=== PATIENT | male | born 1980 | race Two or more races ===

== ENCOUNTER 2019-06-10 06:08 | Day surgery (SDC) | payer OTHER ==
[2019-06-10] VITALS (10 sets, daily range): BP systolic 95–124; BP diastolic 50–81
[~2019-06-10] VITALS: Ht 182.9 cm; Wt 81.6 kg
[~2019-06-10 06:08] MED LIST: NKM; ceFAZolin 1gm IVPB IVPB ONE; celeBREX 200mg Cap **SURGERY PATIENTS ONLY ORAL ONE; oxyCONTIN 20mg tab ORAL ONE
--- NOTE | 2019-06-10 06:50 | NUR ---
IV LR WAS STARTED BY ISMA ALOPS RN. NO S/S OF INFILTRATION.
[2019-06-10] MEDS ORDERED: Bupivacaine 0.5% Inj 30 ml vial INJ ONE (07:23)
[2019-06-10] MEDS ORDERED: EPINEPHrine 1mg/1ml Amp ONE (07:23)
[2019-06-10] MEDS ORDERED: LR 1000ml 1,000 ML IVLG SCH (07:38)
--- NOTE | 2019-06-10 07:38 | Anethesia Preoperative Eval ---
Anesthesia Pre-op PMH/ROS General Date of Evaluation: Jun 10, 2019 Anesthesiologist: Chandan ASA Score: ASA 2 Mallampati Score Class I : Soft palate, uvula, fauces, pillars visible Class II: Soft palate, uvula, fauces visible Class III: Soft palate, base of uvula visible Class IV: Only hard plate visible Mallampati Classification: Class II Surgeon: Laquita Diagnosis: Left shoulder internal derangement Surgical Procedure: Left shoulder arthroscopy Anesthesia History: none Family History: no anesthesia problems Allergies: Coded Allergies: Cantaloupe (Verified Allergy, Intermediate, "itchy throat", 06/09/19) Uncoded Allergies: honeydew (Allergy, Mild, 06/10/19) ITCHY THROAT Medications: see eMAR Patient NPO?: Yes NPO Date: Jun 09, 2019 NPO Time: 22:00 Past Medical History Cardiovascular: Denies: HTN, CAD, AL, valve dz, arrhythmia, other Pulmonary: Denies: asthma, COPD, SEAN, other Gastrointestinal/Genitourinary: Reports: GERD; Denies: CRI, ESRD, other Neurologic/Psychiatric: Denies: dementia, CVA, depression/anxiety, TIA, other Endocrine: Denies: DM, hypothyroidism, steroids, other HEENT: Denies: cataract (L), cataract (R), glaucoma, TELLER (L), TELLER (R), other Hematology/Immune: Denies: anemia, DVT, bleeding disorder, other Musculoskeletal/Integumentary: Reports: other - LBP; Denies: OA, RA, DJD, DDD, edema PSxH Narrative: Denies Anesthesia Pre-op Phys. Exam Physician Exam Last Vital Signs Date Time Temp Pulse Resp B/P (MAP) Pulse Ox O2 Delivery O2 Flow Rate FiO2 06/10/19 07:11 98.1 73 20 120/72 97 Room Air Constitutional: NAD Cardiovascular: RRR Respiratory: CTA Airway Exam Mallampati Score: Class II MO: full ROM: full Teeth: intact Anesthesia Pre-op A/P Labs see chart Studies Pre-op Studies: EKG - sr Risk Assessment & Plan Assessment: ASA II Plan: GA with left interscalene nerve block Status Change Before Surgery: No Pre-Antibiotics Drug: Ancef 2g Given Within 1 Hr of Incision: Yes Hilary Queen MD Jun 10, 2019 07:38
[2019-06-10] MEDS ORDERED: Metoclopramide 10mg/2ml Inj IVP PRN (07:45)
[2019-06-10] MEDS ORDERED: DiphenhydrAMINE 50mg/ml Inj IVP PRN (07:45)
[2019-06-10] MEDS ORDERED: fentaNYL 100 mcg/2 mL IV PRN (07:45)
[2019-06-10] MEDS ORDERED: Hydromorphone 0.5mg/0.5ml inj IVP PRN (07:45)
[2019-06-10] MEDS ORDERED: LORazepam Inj 2mg/ml 1ml IV PRN (07:45)
[2019-06-10] MEDS ORDERED: Ketorolac 30mg Inj IV PRN (07:45)
[2019-06-10] MEDS ORDERED: Midazolam 2mg/2ml Inj IVP PRN (07:45)
--- NOTE | 2019-06-10 08:23 | Pre-Procedure Note/Attestation ---
Pre-Procedure Note/Attestation Complete Prior to Procedure Planned Procedure: left Procedure Narrative: left shoulder scope, sad, mini zahra, debridement vs repair RTC Indications for Procedure Pre-Operative Diagnosis: left shoulder rtc tear Attestation I attest that I discussed the nature of the procedure; its benefits; risks and complications; and alternatives (and the risks and benefits of such alternatives ), prior to the procedure, with the patient (or the patient's legal high school admissions representative). I attest that, if there was a reasonable possibility of needing a blood transfusion, the patient (or the patient's legal high school admissions representative) was given the [place] [employer] [facility] standardized written summary, pursuant to the [place] Blood Safety Act ([place] Health and Safety Code # 1645, as amended). I attest that I re-evaluated the patient just prior to the surgery and that there has been no change in the patient's H&P, except as documented below: none Jose Coelho MD Jun 10, 2019 08:23
[2019-06-10] MEDS ORDERED: Lidocaine 1% MPF 10mg/ml 5ml ONE (08:27)
[2019-06-10] MEDS ORDERED: fentaNYL 100 mcg/2 mL IV ONE (08:27)
[2019-06-10] MEDS ORDERED: Propofol 200mg/20ml IV ONE (08:27)
[2019-06-10] MEDS ORDERED: Midazolam 2mg/2ml Inj ONE (08:27)
[2019-06-10] MEDS ORDERED: Ketorolac 30mg Inj ONE (08:28)
[2019-06-10] MEDS ORDERED: Dexamethasone 4mg/ml vial ONE (08:28)
[2019-06-10] MEDS ORDERED: Rocuronium Bromide 50mg/5ml Inj IV ONE (09:00)
[2019-06-10] MEDS ORDERED: NS Irrig 1000ml ONE (09:00)
[2019-06-10] MEDS ORDERED: NS Irrig 4000ml IRRIG ONE ×2 (09:00→10:24)
[2019-06-10] MEDS ORDERED: LR 1000ml ONE (09:00)
[2019-06-10] MEDS ORDERED: Neostigmine 1mg/ml 10ml Inj ONE (10:37)
[2019-06-10] MEDS ORDERED: Glycopyrrolate 0.2mg/ml 1ml Vial ONE (10:37)
--- NOTE | 2019-06-10 10:38 | Brief Operative Note ---
Immediate Post Operative Note Operative Note Chief Complaint: left shoulder pain Pre-op Diagnosis: left shoulder impingement Procedure: left shoulder scope, sad, adelfo zahra, rtc debridement Post-op Diagnosis: same as pre-op Findings: consistent w/pre-op dx studies Surgeon: md hu Laser Beam Color Scanner Operator: janet tomlinson Anesthesiologist: md stef Anesthesia: general Specimen: none Complications: none Condition: stable Fluids: ns Estimated Blood Loss: minimal Drains: none Implant(s) used?: No Michelle Tomlinson Jun 10, 2019 10:38
--- NOTE | 2019-06-10 10:50 | Immediate Post-Op Evaluation ---
Immediate Post-Op Evalulation Immediate Post-Op Evalulation Procedure: Left shoulder arthroscopy, mini zahra decompression Date of Evaluation: Jun 10, 2019 Time of Evaluation: 10:57 IV Fluids: 800 Blood Products: 0 Estimated Blood Loss: min Urinary Output: 0 Blood Pressure Systolic: 95 Blood Pressure Diastolic: 52 Pulse Rate: 53 Respiratory Rate: 16 O2 Sat by Pulse Oximetry: 99 Temperature (Fahrenheit): 97.6 Pain Score (1-10): 0 Nausea: No Vomiting: No Complications 0 Patient Status: awake, reacts, patent, none Hydration Status: adequate Drug: Ancef 2g Given Within 1 Hr of Incision: Yes Hilary Queen MD Jun 10, 2019 10:50
--- NOTE | 2019-06-10 10:53 | 48 Hour Post Anesthesia Eval ---
Post Anesthesia Evaluation Procedure: Left shoulder arthroscopy, mini zahra decompression Date of Evaluation: Jun 10, 2019 Airway: patent Nausea: No Vomiting: No Pain Intensity: 0 Hydration Status: adequate Cardiopulmonary Status: at baseline Mental Status/LOC: patient returned to baseline Post-Anesthesia Complications: 0 Follow-up care needed: ready to discharge Hilary Queen MD Jun 10, 2019 10:52
[2019-06-10] MEDS ORDERED: Tylenol #3 tab (300mg/30mg) ORAL PRN (15:46)
[2019-06-10] MEDS ORDERED: D5 1/2NS 1,000 ML IV SCH (15:46)
[2019-06-10] MEDS ORDERED: HYDROcodone/Acetamin 5/325 tab ORAL PRN (15:46)
[2019-06-10] MEDS ORDERED: HYDROmorphone 1mg/ml Carpuject SUBQ PRN (15:46)
--- NOTE | 2019-06-10 17:45 | Operative Note - Dictated ---
DATE OF OPERATION: 06/10/2019 PREOPERATIVE DIAGNOSES: 1. Left shoulder impingement. 2. Left shoulder bursitis. 3. Left shoulder possible rotator cuff tear. POSTOPERATIVE DIAGNOSES: 1. Left shoulder anterior superior labral fraying and tearing without detachment from glenoid. 2. Left shoulder subacromial impingement and severe bursitis. 3. Left shoulder bone spur underneath the acromion. 4. Left shoulder articular bursal sided rotator cuff fraying involving 10% of thickness of the tendon. No full-thickness tear of the rotator cuff was noted. PROCEDURE: 1. Left shoulder arthroscopy and extensive intra-articular shaving. 2. Left shoulder anterior and superior labral debridement. 3. Left shoulder subacromial bursoscopy, bursectomy, subacromial decompression. 4. Left shoulder mini-Gallo procedure (resection of inferior 30% distended clavicle for coplaning). 5. Left shoulder arthroscopic debridement of the bursal sided rotator cuff tear without rotator cuff repair. SURGEON: Jose Coelho M.D. ROD HANGER: Michelle Aguilar PA-C. Prehemmer was present during the actual operative portion of the case and was important and essential part of the operation. During the operation, the legal assistant held and operated the arthroscopic camera for visualization, assisted by manipulating the arm to help with visualization, and helped with essential parts of the repair process as necessary such as operating surgical instruments under surgeon supervision, suture management, and wound closures. ANESTHESIOLOGIST: Hilary Hawley M.D. ANESTHESIA: General endotracheal anesthesia combined with interscalene block for postoperative pain management. ESTIMATED BLOOD LOSS: Less than 20 mL. COMPLICATIONS: None. SURGICAL INDICATION: Patient is a 39-year-old male who sustained the above injury to his shoulder. The patient was treated non-operative initially, but this did not alleviate the patients symptoms. Therefore, after discussing all non-surgical and surgical options, and discussing all foreseeable risk and benefits of surgery, the patient opted for surgical treatment as described above. PATIENT POSITIONING: Patient was brought to the operating room table and was placed on the operating room table. All pressure points were well padded. General anesthesia was induced and patient was then placed in the lateral decubitus position. All pressure points were well padded again and an axillary roll was placed. Patient shoulder was then prepped and draped in the usual sterile fashion. Time out was performed and the appropriate preoperative antibiotic was given by the anesthesiologist. EXAMINATION OF SHOULDER UNDER ANESTHESIA: The shoulder was examined under anesthesia with all muscles well relaxed. The shoulder was forward flexed, abducted and was placed through full range of external and internal rotation. The anterior, posterior, and inferior stability of the shoulder was checked. The exam revealed no evidence of adhesive capsulitis and no evidence of instability. PORTAL PLACEMENT: The posterior portal was established 2 cm inferior and 1 cm medial to the edge of the posterior acromion. 1 cm skin incision was made using an eleven blade and using the blunt obturator, the cannula was gently placed through the capsule. The midglenoid portal was established just lateral to the coracoid process under direct visualization. Direction of the cannula was first established using a spinal needle, and subsequently, the cannula was placed through the capsule with a blunt obturator. DIAGNOSTIC ARTHROSCOPY: The biceps tendon was probed and pulled through the joint for visualization. It appeared normal. The biceps anchor was palpated with a probe and was visualized. There was some evidence of superior as well as anterior labral fraying and tearing, but there was no detachment from glenoid. The posterior labrum and axillary recess was visualized. This was normal and there was no evidence of loose cartilage or fragments in this area. There was some central chondral fraying on the glenoid. However, there was no full-thickness glenoid cartilage loss. The articular surface of the rotator cuff was visualized and probed next. There was no evidence of articular sided rotator cuff tear extending from the supraspinatus back to the posterior cuff. The Humeral head articular surface was then visualized. There was no evidence of articular cartilage damage. Next the anterior labrum, middle gleno-humeral ligament, subscapularis tendon, and the anterior inferior gleno-humeral ligament were evaluated. Again, there was some anterior labral tearing, but the middle glenohumeral ligament, subscapularis, and anterior inferior glenohumeral ligaments were intact. At this point, the scope was moved to the midglenoid portal and the posterior structures including the posterior labrum, posterior capsule and posterior cuff were visualized. These structures were completely normal. The subscapularis recess was devoid of any loose bodies and the anterior capsule was well attached to the humeral neck. The middle and anterior inferior glenohumeral ligament was visualized. These structures were completely normal. OPERATIVE DEBRIDEMENTS AND REPAIR: Care was given to all partial thickness tears and frayed structures in the shoulder joint. The frayed rotator cuff and labrum was debrided using a shaver initially through the anterior portal and subsequently through the posterior portal to complete the debridement. This allowed for smooth debridement of all affected structures and all loose fragments were removed. DIAGNOSTIC BURSOSCOPY AND SUBACROMIAL DECOMPRESSION: The subacromion bursa was entered from the posterior portal. The anterior portal was established under the CA ligament using a switching stick. Subacromial arthroscopy was initiated. There was extensive bursitis and thickened and inflamed bursa tissue present. The CA ligament appeared to be scuffed and frayed. The shaver was placed through the anterior cannula and debridement of the hypertrophic bursa tissue was accomplished. Once visualization was adequate, a lateral portal was established using a blunt trochar in the mid portion of the acromion bone in the anterior-posterior direction and approximately 2 cm lateral to the lateral edge of the acromion. Using combination of shaver and electrocautery the CA ligament was released from the undersurface of the acromion and a complete bursectomy was accomplished. At this point, a subacromial decompression was performed using a uzma initially taking off 5-8 mm of the anterolateral edge of the acromion from the lateral portal and viewing from the posterior portal. Then the lateral border of the undersurface of the acromion was decompressed to the same dept as the anterolateral edge. A posterior trough was then created in the acromion in line with the posterior edge of the clavicle. At this point, the scope was placed in the lateral portal and the subacromial decompression was performed from the posterior portal decompressing the undersurface of the acromion to dept of 5-8 mm. The decompression was performed anterior to the previously marked trough all the way medially to the level of the AC joint. At all times, care was given not to take off too much bone in order to avoid risk of fracture of the acromion. An excellent subacromial decompression was performed in this fashion. At this point, the bursal side of the rotator cuff was examined. All the bursa over the rotator cuff was removed and the rotator cuff was examined with a probe. The arm was placed into external rotation, neutral, and then internal rotation and there was evidence of fraying of the bursal sided rotator cuff consistent with 10% bursal sided rotator cuff tear. However, there was no large full-thickness or high-grade partial-thickness tear . The scope was then placed in the posterior portal and the subacromial decompression was rechecked to assure there is no area of bone spur that would be still impinging onto the rotator cuff. EVALUATION OF DISTAL CLAVICLE AND DISTAL CLAVICLE RESECTION: Care was given to the distal end of the clavicle. Using electrocautery and brandon, the distal end of the bursa and soft tissue around the distal end of the clavicle was debrided and cleaned. Care was given not to inflict excessive trauma to the ligaments of the AC joint. The distal end of the clavicle appeared to have an inferior osteophyte extending down well bellow the level of the acromion at the level of the AC joint. This appeared to be impinging onto the supraspinatus muscle belly and the musculotendinous junction of the rotator cuff. A mini-Gallo procedure was performed by using a uzma to resect the inferior 30% of the distal end of the clavicle. This decompression allowed space for the inferior structures to slide without impingement. This co-plained the inferior edge of the distal clavicle with the inferior edge of the acromion. At this point, care was given to the articular bursal sided rotator cuff tear. This was debrided using a shaver to a stable zone. No rotator cuff repair was necessary as the most of the rotator cuff was intact. CONDITION AT DISCHARGE FROM OPERATING ROOM: The skin was re-approximated and sterile dressing and sling were applied. All lap counts and instrument counts were correct. Patient tolerated the procedure well without complications and was taken to the recovery room in stable condition. Jose Coelho M.D. DR: JOSÉ MIGUEL JOB#: [id number] CC: [email or web address]
== END 2019-06-10 12:35 | disposition home or self-care (01) ==
LOC: SUR 06:08
DX: M75.42 Impingement syndrome of left shoulder (principal); M71.9 Bursopathy, unspecified; S43.432A Superior glenoid labrum lesion of left shoulder, initial encounter; M75.112 Incomplete rotator cuff tear or rupture of left shoulder, not specified as traumatic; X58.XXXA Exposure to other specified factors, initial encounter; Y92.9 Unspecified place or not applicable; K21.9 Gastro-esophageal reflux disease without esophagitis; Z91.018 Allergy to other foods
CPT/HCPCS: 29823; 29824; J0690; J1100; J1885; J2250; J2405; J2704; J2710; J3010; 94003; 94150